=== PATIENT | female | born 1970 | race Caucasian/White ===

== ENCOUNTER 2020-12-26 13:59 | Outpatient (CLI) | payer OTHER, SELFPAY ==
--- NOTE | ~2020-12-26 | US_ITS ---
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 Factor 5 deficiency. TECHNIQUE: Multiple grayscale, color flow, Doppler sonographic images of the left upper extremity vei ns obtained by technologist. Compression was performed where able. There is no prior study for justice matos. FINDINGS: Left upper extremity: Jugular vein: ------------> Normal. Subclavian vein: --------> Normal. Axillary vein:------------> Normal. Brachial vein:-----------> Normal. Basilic vein: ------------> Normal. Cephalic vein: ----------> Normal. Radial vein: ------------> Normal. Ulnar vein: > Normal. IMPRESSION: No deep venous thrombosis of the left upper extremity. Reviewed, dictated and finalized at location A.
== END 2020-12-26 14:00 | disposition home or self-care (01) ==
PROVIDERS: PCP Internal Medicine; Visit Provider Nurse Practitioner
DX: M79.602 Pain in left arm (principal); R60.9 Edema, unspecified
CPT/HCPCS: 93971

== ENCOUNTER → 2021-03-21 17:21 | Outpatient (CLI) | payer OTHER, SELFPAY ==
--- NOTE | ~2021-03-21 | XR_ITS ---
EXAMINATION: XR shoulder LT min 2V DATE: 03/21/2021 17:43 INDICATION: Left shoulder pain. TECHNIQUE: 4 views of left shoulder were obtained. COMPARISON: None. FINDINGS: Bone alignment is normal. No fracture. Glenohumeral joint is normal. There is mild acromioc lavicular joint osteoarthritis. There are surgical clips in left axilla. 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 IMPRESSION: 1. Mild left acromioclavicular joint osteoarthritis. Reviewed, dictated and finalized at location A.
== END ==
PROVIDERS: PCP Internal Medicine; Visit Provider Nurse Practitioner
DX: M19.012 Primary osteoarthritis, left shoulder (principal)
CPT/HCPCS: 73030

== ENCOUNTER 2021-03-30 08:11 | Outpatient (CLI) | payer OTHER, SELFPAY ==
--- NOTE | ~2021-03-30 | CT_ITS ---
EXAMINATION: CT shoulder LT wo con DATE: 03/30/2021 08:38 INDICATION: Left shoulder pain TECHNIQUE: High resolution computed tomography (CT) of the left shoulder was performed without intrav enous contrast. Additional sagittal and coronal reconstructions were performed. Automated exposure co ntrol and iterative reconstruction technique were employed. The dose-length product was 323.67 mGy-cm . COMPARISON: Left shoulder radiographs dated 03/21/2021 FINDINGS: Alignment is normal. No fracture. Left glenohumeral joint space is normal. Minimal left acromioclavic ular osteoarthritis. No glenohumeral joint effusion. Musculature of the left shoulder girdle appears normal. Partially visualized tissue ambulette driver the left breast and multiple surgical clips the left axi lla consistent with prior axillary lymph node dissection. No pathologically enlarged lymphadenopathy at the left axilla or visualized left neck and chest. IMPRESSION: 1. Minimal left acromioclavicular osteoarthritis. Reviewed, dictated and finalized at location A.
== END 2021-03-30 08:12 | disposition home or self-care (01) ==
PROVIDERS: PCP Internal Medicine; Visit Provider Nurse Practitioner
DX: M25.512 Pain in left shoulder (principal); M19.012 Primary osteoarthritis, left shoulder
CPT/HCPCS: 73200

== ENCOUNTER 2021-06-11 13:15 | Outpatient (RCR) | payer OTHER, SELFPAY ==
--- NOTE | 2021-04-26 12:04 | PTOPEVAL ---
PHYSICAL THERAPY EVALUATION Thank you for referring Darya Martinez to [facility].? Darya was evaluated for the dx of left shoulder pain/adhesive capsulitis. The patient is scheduled to be seen for therapy? 2 x/week for 4 weeks. Please review, sign, date and return this plan of care PRATIMA. I agree with and certify that the following plan of care is medically necessary. Referring Physician Date Attending Provider: Edita Albert NP *PT Outpatient Evaluation Start: 04/26/21 10:29 Freq: Status: Active Protocol: Document 04/26/21 10:29 MLV (Rec: 04/26/21 11:31 [facility] [id number]) Therapy Assessment Status Assessment Status Assessment Status Evaluation Evaluation Information Problem Diagnosis left shoulder pain Onset Oct 2020 Additional Evaluation Detail The patient fell in her bathroom hard and landed on the left arm. The whole arm hurt for 2 weeks then got better with pain worse at the shoulder area. The patient also found out she had breast cancer at the same time frame. The patient required double mastectomy in January 2021 and the shoulder was still hurting but had to fix CA issues first. The patient has left deltoid pain with raising her arm, driving and reaching across her body. The patient has trouble putting her bra on/off, and increased pain with sidelying which all affects her sleep. The pt works multimedia production assistant computer work remotely and worked out up to about a year ago. Subjective Information Note: the patient will need Query Text:As Reported By Patient/ surgery in May for Family breast surgery. Pt is right hand dominant Diagnostic Tests X-Rays For This Problem Yes: mild OA Other Tests For This Problem Yes: CT scan shows only mild OA also. Pain Assessment Timing of Pain Assessment Timing of Pain Assessment Assessment Pain Scale Pain Scale Used Numeric (1 - 10) Self Report Pain Assessment Left Shoulder(s) Reported Pain Level 1 Pain Frequency Acute Other Pain Description 6 with reaching full, 7 with
--- NOTE | 2021-05-28 15:23 | PTOPEVAL ---
PHYSICAL THERAPY RE-EVALUATION Thank you for referring Darya Martinez to [facility].? Darya was re-evaluated for the dx of left frozen shoulder and PT to continue with goals partially met. The patient is scheduled to be seen for therapy?2 x/week for 2 more weeks. Please review, sign, date and return this plan of care PRATIMA. I agree with and certify that the following plan of care is medically necessary. Referring Physician Date Attending Provider: Edita Albert NP *PT Outpatient Evaluation Start: 04/26/21 10:29 Freq: Status: Active Protocol: Document 05/28/21 12:34 MLV (Rec: 05/28/21 13:22 MLV [id number]) Evaluation Information Problem Diagnosis left shoulder pain/frozen shoulder Onset Oct 2020 Additional Evaluation Detail The patient reports improved ability to reach and has less pain with most movements. Patient is more tolerant to laying on her right side now than before. The patient has pulleys for home exercises, is compliant and denies trouble with current HEP. The patient agrees she needs further motion to return to normal use of arm and to prevent recurring symptoms when having breast surgery soon. Pain Assessment Timing of Pain Assessment Timing of Pain Assessment Assessment Pain Scale Pain Scale Used Numeric (1 - 10) Self Report Pain Assessment Left Shoulder(s) Reported Pain Level 1 Other Pain Description 3 with activity/movement of arm Pain Score Pain Score 1: Self Report Interventions Used Interventions Used By Clinicians Electrical Stimulation,Heat, Manual Therapy Techniques Pain Relief Interventions Used By Exercise,Position Change Patient Upper Extremity Range of Motion General Upper Extremity Range of Motion Gross Upper Extremity Range of Motion active right shoulder flexion Comments 153' with pain, abduction 174' with pain, extension 69', ER 61', 80' with pain for IR active left shoulder flexion 145', abduction 160', extension 63', ER 47', 80' IR (improved) Upper Extremity Muscle Strength Testing General Upper Extremity Strength Reason Not Measured WFL/Left,WFL/Right Palpation Assessment
--- NOTE | 2021-05-31 11:48 | PCPTNOTE ---
Patient did not show up for scheduled appointment this date.
--- NOTE | 2021-06-08 09:26 | PCPTNOTE ---
Patient called & cancelled scheduled appointment this date due to having a sore throat and not feeling well.
--- NOTE | 2021-06-11 14:09 | PTOPEVAL ---
PHYSICAL THERAPY DISCHARGE Thank you for referring Darya Martinez to [facility].? The patient has completed 10 visits for the dx of left shoulder pain/adhesive capsulitis. Goals are met/ DC PT. Please review, sign, date and return this plan of care PRATIMA. I agree with and certify the following plan of carE. Referring Physician Date Attending Provider: Edita Albert NP *PT Outpatient Discharge Start: 04/26/21 10:29 Freq: Status: Active Protocol: Document 06/11/21 13:14 MLV (Rec: 06/11/21 14:03 MLV [id number]) Evaluation Information Problem Diagnosis left shoulder pain/frozen shoulder Onset Oct 2020 Additional Evaluation Detail The patient reports her arm doesn't keep her up at night and doesn't have pain unless she overuses it. Patient reports having difficulty with compliance for her stretching now that her arm feels better but understands the importance of doing better to prevent a frozen shoulder after her upcoming breast surgery. Pt denies difficulty with HEP techniques, just forgets to do it sometimes. Pain Assessment Timing of Pain Assessment Timing of Pain Assessment Assessment Pain Scale Pain Scale Used Numeric (1 - 10) Self Report Pain Assessment Left Shoulder(s) Reported Pain Level 0 Other Pain Description 4 with overuse Pain Score Pain Score 0: Self Report Interventions Used Interventions Used By Clinicians Education,Exercise,Manual Therapy Techniques Pain Relief Interventions Used By Exercise,Inactivity/Rest Patient Upper Extremity Range of Motion General Upper Extremity Range of Motion Gross Upper Extremity Range of Motion active right shoulder flexion Comments 153' with pain, abduction 174' with pain, extension 69', ER 61', 80' with pain for IR active left shoulder flexion 149', abduction 166', extension 63', ER 50', 80' IR Palpation Assessment Palpation Palpation remaining tightness at neck/ shoulder are of chronic nature. Pt has hx of tightnesses that she goes to a massage therapist for.
== END 2021-06-11 17:38 | disposition home or self-care (01) ==
LOC: ANHPT 13:15
PROVIDERS: PCP Internal Medicine; Visit Provider Nurse Practitioner
DX: M25.512 Pain in left shoulder (principal)
CPT/HCPCS: 97014; 97110; 97140; 97162; G0283

== ENCOUNTER → 2021-10-12 00:43 | Outpatient (CLI) | payer OTHER, SELFPAY ==
[2021-10-13 18:19] LABS: SARS-CoV-2 RNA PCR Negative
== END ==
PROVIDERS: PCP Internal Medicine; Visit Provider Internal Medicine Gastroenterology
DX: Z01.812 Encounter for preprocedural laboratory examination (principal); Z20.822 Contact with and (suspected) exposure to COVID-19
CPT/HCPCS: C9803; U0003; U0005

== ENCOUNTER 2021-10-15 00:17 | Day surgery (SDC) | payer OTHER, SELFPAY ==
[2021-10-01 10:48] VITALS: BMI 28.4
[2021-10-15 06:45] VITALS: BP 114/87; PULSE 108; RESP 18; TEMP 36.9; O2SAT 98
[2021-10-15] MEDS: LACTATED RINGERS 1,000 ML 150 ML IV CONT (06:48)
--- NOTE | 2021-10-15 06:57 | WPDANESEPPF ---
Anes - Initial Pre Proc Eval Procedure: Operation Date: 10/15/21 07:30 Proposed Procedures p Screening Colonoscopy - Fox Weber MD Date/Time: 10/15/21 06:57 Surgeon: Fox Weber MD Pre Op Diagnosis: neoplasm screening Patient Data Age: 51 Gender: F Height: 1.6 m Weight: 69.8 kg Last Vital Signs Temp 36.9 C 10/15/21 06:45 Pulse 108 H 10/15/21 06:45 Resp 18 10/15/21 06:45 BP 114/87 10/15/21 06:45 Pulse Ox 98 10/15/21 06:45 Allergies Allergy/AdvReac Type Severity Reaction Status Date / Time No Known Allergies Allergy Verified 10/15/21 06:43 Home Medications Medication Instructions Recorded Confirmed Type aspirin 81 mg tablet,delayed 81 mg PO DAILY 09/16/19 10/01/21 History release escitalopram oxalate 5 mg tablet 5 mg PO DAILY 06/07/20 10/01/21 History anastrozole 1 mg tablet 1 mg PO DAILY 04/26/21 10/01/21 History leuprolide (3 month) 22.5 mg (3 22.5 mg IM [id number] 04/26/21 10/01/21 History month) intramuscular syringe kit valacyclovir 500 mg tablet 500 mg PO DAILY #90 tablet 07/12/21 10/01/21 Rx fluticasone propionate 50 2 spray NASAL DAILY PRN #15.8 ml 08/17/21 10/01/21 Rx mcg/actuation nasal spray,suspension trazodone 100 mg tablet 100 mg PO QHS PRN #30 tablet 09/14/21 10/01/21 Rx cholecalciferol (vitamin D3) 50 mcg PO DAILY 10/01/21 10/01/21 History [Vitamin D3] Patient hx anesthesia problems: none Family hx anesthesia problems: none Results Review: All pre-operative results and documents have been reviewed as part of the pre-operative evaluation. 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 H/O mastectomy History of bilateral tubal ligation 2002 Family History Family History Grandparent Diabetes mellitus Thrombocyte disorder Mother Patient's mother is in good health Thrombocyte disorder Father Dementia Family history of cancer Social History Social History Smoking status: Never smoker Second hand tobacco smoke exposure: No Alcohol intake: current Alcohol use details: social Substance use: unknown Substance use type: does not use Living arrangements: with family Spiritual care concerns: No Anes - Eval Final PreProcedure Day of Procedure 10/15/21 06:57 Patient weight: overweight Heart: regular rate and rhythm Lungs: clear to auscultation Airway: Mallampati scale class II Neurological: alert and oriented Last oral intake: >/= 8 hours ASA classification: III Emergent: no Anesthetic plan: proceed Anesthesia type and monitoring: general GIVS and standard monitoring Results Review: All pre-operative results and documents have been reviewed as part of the pre-operative evaluation. Informed Consent: The patient's anesthetic plan and its attendant risks and benefits were discussed with the patient/family/POA. Questions were solicited and answers provided to the satisfaction of the patient/family/POA.
--- NOTE | 2021-10-15 07:34 | PM.HPGS ---
History of Present Illness History of Present Illness Consent: Risks, benefits, and alternatives have been discussed and questions answered. Patient agrees to proceed with procedure. Chief complaint: neoplasm screening Narrative: Darya Martinez is a 51 year old female here for first screening colonoscopy Review of Systems Constitutional: Constitutional: Denies headache(s) and Denies weakness Eyes: Eyes: Denies blurry vision ENT: Reports Normal hearing present, Denies headache(s) and Denies neck pain Cardiovascular: Cardiovascular: Denies chest pain and Denies dyspnea Respiratory: Respiratory: Denies dyspnea Gastrointestinal: Gastrointestinal: Reports no additional gastrointestinal complaints Genitourinary: Genitourinary: Denies dysuria Musculoskeletal: Musculoskeletal: Denies neck pain Integumentary/Breasts: Skin/Breast: Denies dry skin Neurologic: Reports Normal hearing present, Denies headache(s) and Denies weakness Psychiatric: Psychiatric: Denies anxiety Endocrine: Endocrine: Denies change in body appearance Hematologic/Lymphatic: Hematologic/Lymphatic: Denies easy bleeding Allergic/Immunologic: Allergic/Immunologic: Denies urticaria PMF Past Medical History Medical History (Updated 10/15/21 @ 07:34 by Fox Weber MD) Abnormal uterine bleeding Removal of uterine cells 2018 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 H/O mastectomy History of bilateral tubal ligation 2002 Family History Family History Grandparent Diabetes mellitus Thrombocyte disorder Mother Patient's mother is in good health Thrombocyte disorder Father Dementia Family history of cancer Social History Social History Smoking status: Never smoker Second hand tobacco smoke exposure: No Alcohol intake: current Alcohol use details: social Substance use: unknown Substance use type: does not use Living arrangements: with family Spiritual care concerns: No Meds Home Medications and Allergies Home Medications Medication Instructions Recorded Confirmed Type aspirin 81 mg tablet,delayed 81 mg PO DAILY 09/16/19 10/01/21 History release escitalopram oxalate 5 mg tablet 5 mg PO DAILY 06/07/20 10/01/21 History anastrozole 1 mg tablet 1 mg PO DAILY 04/26/21 10/01/21 History leuprolide (3 month) 22.5 mg (3 22.5 mg IM [id number] 04/26/21 10/01/21 History month) intramuscular syringe kit valacyclovir 500 mg tablet 500 mg PO DAILY #90 tablet 07/12/21 10/01/21 Rx fluticasone propionate 50 2 spray NASAL DAILY PRN #15.8 ml 08/17/21 10/01/21 Rx mcg/actuation nasal spray,suspension trazodone 100 mg tablet 100 mg PO QHS PRN #30 tablet 09/14/21 10/01/21 Rx cholecalciferol (vitamin D3) 50 mcg PO DAILY 10/01/21 10/01/21 History [Vitamin D3] Allergies Allergy/AdvReac Type Severity Reaction Status Date / Time No Known Allergies Allergy Verified 10/15/21 06:43 Vital Signs Vital Signs - 24 hr 10/15/21 06:45 Temperature 98.4 F Pulse Rate 108 H Respiratory Rate 18 Blood Pressure 114/87 Pulse Oximetry 98 Exam Const: General: comfortable and no acute distress HENMT: General nose exam: Normal nares present Eyes: General: appearance normal, both eyes and all related structures Neck: Neck: no JVD Resp: Auscultation: clear to auscultation bilaterally Cardio: Rate: regular rate Rhyth
[2021-10-15 07:52] VITALS: BP 88/56; PULSE 82; RESP 18; O2SAT 94
[2021-10-15 08:02] VITALS: BP 98/65; PULSE 83; RESP 18; O2SAT 100
[2021-10-15 08:12] VITALS: BP 90/64; PULSE 83; RESP 17; O2SAT 100
== END 2021-10-15 08:26 | disposition home or self-care (01) ==
PROVIDERS: PCP Internal Medicine; Visit Provider Internal Medicine Gastroenterology
PROC: 0DJD8ZZ Inspection of Lower Intestinal Tract, Via Natural or Artificial Opening Endoscopic (ICD-10-PCS; CPT 45378; principal; 2021-10-15 07:30)
DX: Z12.11 Encounter for screening for malignant neoplasm of colon (principal); D12.3 Benign neoplasm of transverse colon; K57.30 Diverticulosis of large intestine without perforation or abscess without bleeding; K64.8 Other hemorrhoids; F32.9 Major depressive disorder, single episode, unspecified; D68.51 Activated protein C resistance; E78.5 Hyperlipidemia, unspecified; D72.819 Decreased white blood cell count, unspecified; E55.9 Vitamin D deficiency, unspecified; Z79.82 Long term (current) use of aspirin
CPT/HCPCS: 45380; 88305; C9803; J2001; J2704; J7120; U0003; U0005

== ENCOUNTER 2022-07-10 11:44 | Emergency (ER) | payer OTHER, SELFPAY ==
[2022-07-10 11:57] VITALS: BP 116/69; PULSE 93; RESP 18; TEMP 36.5; O2SAT 97
--- NOTE | 2022-07-10 12:59 | ED.URI ---
HPI - URI/Sore Throat General Chief Complaint: Upper Respiratory Infection Stated Complaint: Sore Throat,Congestion,Cough Source: patient Mode of arrival: ambulatory History of Present Illness HPI Narrative: This is a 52-year-old female who presented to urgent care with complaints of a sore throat, congestion, and a nonproductive cough. According to patient her symptoms started a week ago she also noted that her grandson tested positive for COVID in RSVP. She notes that she tested herself 2 times for COVID which was negative. She did note that her appetite was also decreased, she used sagt-dua-zipsgrt DayQuil and NyQuil to treat her symptoms . The patient denies SOB, CP, palpitation, extremity numbness, lightheadedness, dizziness, constipation, diarrhea, chills, or fever. Discharge instructions reviewed with patient, as well as provided in writing per nursing staff. The instructions also include specific and strict return/GO TO THE ER as well as f/u information. All questions have been answered, and the patient and/or family deny any further questions with discharge and discharge plan. Bronchitis MD elicited complaint: cough and nasal congestion Related Data Home Medications Medication Instructions Recorded Confirmed aspirin 81 mg tablet,delayed 81 mg PO DAILY 09/16/19 07/10/22 release escitalopram oxalate 5 mg tablet 10 mg PO DAILY 06/07/20 07/10/22 (Lexapro) anastrozole 1 mg tablet 1 mg PO DAILY 04/26/21 07/10/22 leuprolide (3 month) 22.5 mg (3 22.5 mg IM [id number] 04/26/21 07/10/22 month) intramuscular syringe kit (Lupron Depot) cholecalciferol (vitamin D3) 50 50 mcg PO DAILY 10/01/21 07/10/22 mcg (2,000 unit) capsule (Vitamin D3) rivaroxaban 20 mg tablet (Xarelto) 20 mg PO DAILY 07/10/22 07/10/22 Allergies Allergy/AdvReac Type Severity Reaction Status Date / Time No Known Allergies Allergy Verified 07/10/22 12:14 Review of Systems Review of Systems: A 14 organ system Review of Systems was performed and pertinent positives included in the HPI, otherwise remaining ROS is negative. [facility] Past Medical History Medical History (Updated 07/10/22 @ 12:58 by Sonda R. 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 H/O mastectomy History of bilateral tubal ligation 2002 Family History Family History Grandparent Diabetes mellitus Thrombocyte disorder Mother Patient's mother is in good health Thrombocyte disorder Father Dementia Family history of cancer Social History Social History Smoking status: Never smoker Second hand tobacco smoke exposure: No Alcohol intake: current Alcohol use details: social Substance use: unknown Substance use type: does not use Spiritual care concerns: No Exam Narrative: GENERAL: This is a well-nourished, well-developed patient, in no apparent distress. HEAD: normocephalic, atraumatic. EYES: PERRL. Sclera clear/white. Vision is grossly intact. EARS: External ears normal, auditory canals clear and without drainage, TMs normal without perforation. Hearing grossly intact. NOSE: External nose normal with no obvious nasal discharge, nares without redness, no rhinorrhea. THROAT: Mucous membranes moist, posterior pharynx clear. NECK: Neck supple, non-tender without lymphadenopathy, masses or thyromegaly. CARDIOVA
== END 2022-07-10 13:00 | disposition home or self-care (01) ==
PROVIDERS: Emergency Provider Nurse Practitioner; PCP Internal Medicine
DX: J00 Acute nasopharyngitis [common cold] (principal); E78.5 Hyperlipidemia, unspecified; Z85.3 Personal history of malignant neoplasm of breast; Z90.12 Acquired absence of left breast and nipple; Z20.822 Contact with and (suspected) exposure to COVID-19; Z79.82 Long term (current) use of aspirin; F32.A Depression, unspecified
CPT/HCPCS: 87426; 99213; C9803; G0463

== ENCOUNTER → 2023-01-16 11:13 | Outpatient (CLI) | payer OTHER, SELFPAY ==
--- NOTE | ~2023-01-16 | US_ITS ---
Pelvic ultrasound. Clinical History: Pelvic pain Technique: Realtime transabdominal and transvaginal scanning of the pelvis was performed. Color flow Doppler and Doppler spectral analysis were performed. Findings: The uterus is anteverted. The endometrial stripe has a thickness of 6 mm. Suspected ill-de fined anterior intramural fibroid measuring 1.8 cm in diameter.. Neither ovary seen. No adnexal mass seen. There is no evidence of free fluid in the cul de sac. Impression: Suspected ill-defined 1.8 cm fibroid, as above. Neither ovary visualized. Reviewed, dictated and finalized at location . Impression: Suspected ill-defined 1.8 cm fibroid, as above. Neither ovary visualized.
== END ==
PROVIDERS: PCP Obstetrics & Gynecology; Visit Provider Obstetrics & Gynecology
DX: R10.2 Pelvic and perineal pain (principal)
CPT/HCPCS: 76830; 76856

== ENCOUNTER → 2023-03-07 10:17 | Outpatient (CLI) | payer OTHER, SELFPAY ==
--- NOTE | ~2023-03-07 | CT_ITS ---
EXAMINATION: CT abdomen pelvis wo/w con DATE: 03/07/2023 11:01 INDICATION: Microscopic hematuria. Pelvic pain. TECHNIQUE: Computed tomography (CT) of the abdomen and pelvis was performed without and subsequently with 130 CC Omnipaque 350 intravenous contrast. Automated exposure control and iterative reconstructi on technique were employed. Exam dose: 1384.48 mGy-cm total exam DLP. COMPARISON: January 16, 2023 pelvic ultrasound examination FINDINGS: The lung bases are clear of infiltrate or consolidation. Normal heart size. No pericardial or pleural effusion. Bilateral breast implants. History of breast cancer. Approximately 7.5 mm nonspecific hypoenhancing lesion of the liver noted anterosuperiorly near the do me. Differential diagnosis includes cyst, hemangioma, solitary metastasis. No prior CT abdomen examin ation is available for comparison. The liver is otherwise unremarkable. The gallbladder appears normal. No bile duct or pancreatic duct dilatation. No pancreatic mass lesion or calcification. Splenic size is within normal range. Normal morphology of the adrenal glands. 8.5 mm right renal cyst. There are 4 nonobstructing right renal calculi, the largest approximately 4.4 mm. There are approximately 4 or 5 left renal calculi, the largest measuring up to approximately 9.5 mm w ith attenuation of 1200 Hounsfield units. There is an approximately 4.4 x 6.4 x 10 mm calculus of the distal right ureter with proximal mild ri ght hydroureteronephrosis. The urinary bladder is unremarkable. No bladder wall thickening or intraluminal filling defect or brien dder calculus is noted. The uterus and adnexal areas are unremarkable. Normal caliber of the abdominal aorta. No intraperitoneal or retroperitoneal or pelvic mass lesion or adenopathy or ascites is detected. There is diverticulosis of left and right colon; no CT evidence of diverticulitis. No bowel obstructi on, bowel wall thickening, pneumatosis or intraperitoneal free air is detected. IMPRESSION: 4.4 x 6.4 x 10 mm distal right ureteral obstructing calculus with proximal mild right hy droureteronephrosis Bilateral nephrolithiasis 8.5 mm right renal cyst Diverticulosis of left and right colon; no evidence of diverticulitis Nonspecific 7.5 mm hypoenhancing lesion of the liver; differential diagnosis given above Reviewed, dictated and finalized at Location A. Reviewed, dictated and finalized at location [] IMPRESSION: 4.4 x 6.4 x 10 mm distal right ureteral obstructing calculus with proximal mild right hydroureteronephrosis Bilateral nephrolithiasis 8.5 mm right renal cyst Diverticulosis of left and right colon; no evidence of diverticulitis Nonspecific 7.5 mm hypoenhancing lesion of the liver; differential diagnosis gi lorne above
--- NOTE | ~2023-03-07 | XR_ITS ---
XR abdomen/kub 1V DATE: 03/07/2023 11:08 INDICATION: Microscopic hematuria TECHNIQUE: 2 supine AP views COMPARISON: 03/17/2023 CT abdomen pelvis FINDINGS: There is mild right hydroureteronephrosis. The distal right ureter is normal caliber. No filling defect of the renal collecting systems is noted. The urinary bladder appears unremarkable. The bowel gas pattern is unremarkable, without evidence of obstruction. The lung bases appear clear. IMPRESSION: Mild right hydroureteronephrosis; distal right ureteral calculus was documented on CT abdomen pelvis. Reviewed, dictated and finalized at Location A. Reviewed, dictated and finalized at location [] IMPRESSION: Mild right hydroureteronephrosis; distal right ureteral calculus wa s documented on 02/2023 CT abdomen pelvis.
[2023-03-07 10:41] LABS: Estimated Glomerular Filt Rate > 60
== END ==
PROVIDERS: PCP Internal Medicine; Visit Provider Urology
DX: R31.29 Other microscopic hematuria (principal); N13.30 Unspecified hydronephrosis; N20.1 Calculus of ureter; N28.1 Cyst of kidney, acquired; K57.30 Diverticulosis of large intestine without perforation or abscess without bleeding
CPT/HCPCS: 74018; 74178; Q9967

== ENCOUNTER 2023-03-13 11:27 | Outpatient (CLI) | payer OTHER, SELFPAY | END 2023-03-13 11:28 | disposition home or self-care (01) | LOC: ANHSURGERY 11:28 | PROVIDERS: PCP Internal Medicine; Visit Provider Urology | DX: N20.1 Calculus of ureter (principal); Z01.818 Encounter for other preprocedural examination | CPT/HCPCS: 87086 ==

== ENCOUNTER 2023-03-18 00:46 | Day surgery (SDC) | payer OTHER, SELFPAY ==
[2023-03-10 15:21] VITALS: BMI 27.7
--- NOTE | 2023-03-10 15:43 | PC.NURSE ---
Report to the Outpatient Waiting Room, entrance under the green pavilion located off [facility], at time __6:00AM on date __03/18/23 . Planned Procedure Time: _7:30AM . Time changes happen often and if your time is changed the preop area will call you the afternoon before. - You and your visitor will be asked to self-screen and do not enter if you have any COVID symptoms. - A mask is optional within the hospital at this time. Patients may have clear liquids (water, carbonated beverages, clear teas, apple juice) until 3 hours prior to surgery with a maximum of 20 ounces. - No food from midnight until time of surgery Take the following medications with a SIP of water the morning of surgery: ___ESCITALOPRAM DO NOT STOP ANY OF YOUR OTHER PRESCRIPTION MEDICATIONS PRIOR TO SURGERY ?EXCEPT THE FOLLOWING Medications to discontinue per physician __HOLD XERALTO PER DR ROBLES- PATIENT CALLING OFFICE TO CLARIFY. HOLD ALL VITAMINS/SUPPLEMENTS 3 DAYS PRE-OP PER ANESTHESIA- LAST DOSE 03/14/23 Please no make-up, nail sinhala, hairspray, perfume, deodorant, or body powder the day of surgery. No jewelry (including any body piercings) or valuables the day of surgery, leave them at home. Please take a shower or bath the night before, or the morning of, surgery with an antibacterial soap. Wear comfortable, loose fitting clothing. Children are encouraged to wear pajamas. - Jewelry must be removed prior to entering the operating room. Rings and piercings that are not removed may be cut off. - The hospital will not accept responsibility for valuables. - Please leave all valuables, including medications, at home the day of surgery. If you are going home after surgery, a licensed livery car driver must drive you home. - NO public transportation without another adult if you receive anesthesia. - We recommend that an adult stay with you for 24 hours following discharge. - We also recommend that you do not drive, make important decision, drink alcoholic beverages, or take any drugs that were not prescribed by your health care provider for at least 24 hours after your discharge time. Follow any additional instructions given to you from your surgeon. If you or anyone in your household have experienced Covid symptoms in the past week, please notify your surgeon or the nurse liaison at the phone number below for possible testing. Telephone instructions given to __PATIENT and asked if any additional questions and then verbalized understanding. Patient advised to call surgeon office or pre surgery nurse liaison [phone] if any additional questions.
--- NOTE | 2023-03-17 12:58 | WPDANESEPPF ---
Anes - Initial Pre Proc Eval Procedure: Operation Date: 03/18/23 07:30 Proposed Procedures p Cystoscopy, Right Ureteroscopy, Right Stone Extraction, Right Retrograde Pyelogram, Right Stent Placement, Right Laser Lithotripsy - Prabhjot Mitchell MD Date/Time: 03/17/23 12:58 Surgeon: Prabhjot Mitchell MD Pre Op Diagnosis: right ureteral stone Patient Data Age: 52 Gender: F Height: 1.6 m Weight: 71 kg Allergies Allergy/AdvReac Type Severity Reaction Status Date / Time No Known Allergies Allergy Verified 03/18/23 06:50 Home Medications Medication Instructions Recorded Confirmed Type escitalopram oxalate 5 mg tablet 10 mg PO QAM 06/07/20 03/10/23 History (Lexapro) cholecalciferol (vitamin D3) 50 50 mcg PO DAILY 10/01/21 03/10/23 History mcg (2,000 unit) capsule (Vitamin D3) fluticasone propionate 50 1 spray intranasal Q12H 5 days #16 07/10/22 03/10/23 Rx mcg/actuation nasal grams spray,suspension (Flonase Allergy Relief) rivaroxaban 20 mg tablet (Xarelto) 20 mg PO QPM 07/10/22 03/10/23 History tamoxifen 10 mg tablet 10 mg PO QAM 07/25/22 03/10/23 History valacyclovir 500 mg tablet 500 mg PO DAILY #90 tabs 07/25/22 03/10/23 Rx Patient hx anesthesia problems: none Family hx anesthesia problems: none Results Review: All pre-operative results and documents have been reviewed as part of the pre-operative evaluation. [facility] Past Medical History Medical History (Updated 03/17/23 @ 12:59 by Fermin Alaniz DO) Abnormal uterine bleeding Removal of uterine cells 2018 Atypical lobular hyperplasia (ALH) of both breasts Breast cancer Diagnosed age 50 (11/2020) Colon cancer screening Depression DVT (deep venous thrombosis) Encounter for breast reconstruction following mastectomy 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 H/O mastectomy History of bilateral tubal ligation 2002 Family History Family History Grandparent Diabetes mellitus Thrombocyte disorder Mother Patient's mother is in good health Thrombocyte disorder Father Dementia Family history of cancer Social History Social History (Updated 01/24/23 @ 07:40 by Dimple Ferrell MA) Smoking status: Never smoker Second hand tobacco smoke exposure: No Alcohol intake: current Drinks per week: 2 Alcohol use details: social Substance use: never Substance use type: does not use Lack of Transportation: No Lack of Food: Never True Current Housing: I Have Housing Concerned About Future Housing: No Difficulty Paying Gas/Electric Bills: No Difficulty Paying for Meds: No Currently Unemployed: No Education: High School Diploma/GED Living arrangements: with family Additional living arrangements comments: DAUGHTER Occupation/Education: occupation Gender identity (if verbalized by the patient): Female Sexual Orientation (if Verbalized by the Patient): Straight or Heterosexual Spiritual care concerns: No Anes - Eval Final PreProcedure Day of Procedure 03/17/23 12:58 Patient weight: overweight Heart: regular rate and rhythm Lungs: clear to auscultation Airway: Mallampati scale class II Neurological: alert and oriented Last oral intake: >/= 8 hours ASA classification: III Emergent: no Anesthetic plan: proceed Anesthesia type and monitoring: general LMA and standard monitoring Results Review: All pre-operative results and documents have been reviewed as part of the pre-operative evaluation. Informed Consent: The patient's anesthetic plan and its attendant risks and benefits were discussed with the patient/family/PO
[2023-03-18] VITALS (8 sets, daily range): BP systolic 115–134; BP diastolic 70–88; PULSE 71–83; RESP 12–20; TEMP 36.4–36.6; O2SAT 99–100
--- NOTE | ~2023-03-18 | XR_ITS ---
EXAMINATION: XR retrograde pyelo w/stent RT DATE: 03/18/2023 08:10 INDICATION: Right internal ureteral stent placement TECHNIQUE: Fluoroscopic images from a right internal ureteral stent placement are submitted for dahiana schultz 15 seconds of fluoroscopy time. FINDINGS: There is a right double-J internal ureteral stent projecting in expected position, with proximal [address] loop at the level of the renal pelvis. The distal coil was not visualized.. IMPRESSION: 1. Right internal ureteral stent placement. Please refer to real-time procedural findings for detai ls. Reviewed, dictated and finalized at location L. IMPRESSION: 1. Right internal ureteral stent placement. Please refer to real-time procedu ral findings for details.
[2023-03-18] MEDS: LACTATED RINGERS 1,000 ML 30 ML IV CONT (06:57)
--- NOTE | 2023-03-18 07:23 | WPDHPUPDATE1 ---
History and Physical Update Update Date/Time: 03/18/23 07:23 History and Physical has been reviewed, including an updated exam of the patient. There are NO changes in the patient's condition. Risks, benefits, and alternatives have been discussed and questions answered. Patient agrees to proceed with procedure.
[2023-03-18] MEDS: ceFAZolin 2 GM/D5W 50 ML 2 GM/50 ML BAG IVPB (07:34)
[2023-03-18] MEDS: LIDOCAINE HCL 2% GEL UROJET 10 ML PKG MUCOUS MEM (08:06)
--- NOTE | 2023-03-18 08:08 | W.PM.PROC2 ---
Procedure Note - Detailed Date of Procedure 03/18/23 Pre-op Diagnosis right ureteral stone-1 cm Post-op Diagnosis Same Procedure Performed Cystoscopy, right retrograde pyelogram, right ureteroscopy, holmium laser of stone, stone extraction, right ureteral stent placement 4.8 Djib[place]ian contour Surgeon Prabhjot Mitchell MD Anesthesia General Description of Procedure Patient is taken the operative suite correctly identified. Once anesthesia was obtained she was placed in dorsal lithotomy position and prepped and draped usual sterile fashion. Twenty-two Djiboutian scope was inserted the bladder. There were no tumors noted. Guidewire was inserted into the orifice on the right. This bypassed the stone. The ureter was dilated with an 8/10 dilator. Rigid ureteral scope was then inserted. The stone was visualized. Using a 200 micron fiber we lasered the stone into multiple small pieces. Largest of which were sent for analysis. Reinspection revealed no residual stones. Pyelogram was then performed to confirm placement of the stent. 4.8 Djiboutian contour stent was then placed with the proximal end coiled in the renal pelvis and the distal in the bladder. Bladder was drained. 2% viscous lidocaine was inserted urethra patient is taken recovery stable condition. She will follow-up in a week's time for stent removal. This completes sedation on this patient. Please send a copy of this operative note to my office Drains Yes Packing No Pathology Yes Complications No immediate complications Condition Stable Disposition PACU
== END 2023-03-18 09:48 | disposition home or self-care (01) ==
PROVIDERS: PCP Internal Medicine; Visit Provider Urology
PROC: (CPT 52352; principal; 2023-03-18 07:30)
DX: N20.1 Calculus of ureter (principal); E78.5 Hyperlipidemia, unspecified; D68.51 Activated protein C resistance; E55.9 Vitamin D deficiency, unspecified; F32.A Depression, unspecified; Z86.718 Personal history of other venous thrombosis and embolism; Z85.3 Personal history of malignant neoplasm of breast; Z79.01 Long term (current) use of anticoagulants; Z79.810 Long term (current) use of selective estrogen receptor modulators (SERMs)
CPT/HCPCS: 52356; 74420; 82365; 87086; 88300; A9270; C1758; C1769; C2617; J0690; J1100; J2250; J2405; J2704; J3010; J7120

== ENCOUNTER 2023-04-17 09:24 | Outpatient (CLI) | payer OTHER, SELFPAY ==
--- NOTE | ~2023-04-17 | XR_ITS ---
Supine and upright views of the abdomen Clinical history: Renal stone COMPARISON: 03/07/2023 Findings: Bowel gas pattern is nonspecific. No evidence for obstruction or free air. Bilateral renal stones are present, measuring up to 11 mm at the left lower pole, and 4 mm the right lower pole. Osse ous structures are intact. Impression: Bilateral nephrolithiasis, as detailed above. Reviewed, dictated and finalized at location . Impression: Bilateral nephrolithiasis, as detailed above.
== END 2023-04-17 09:25 | disposition home or self-care (01) ==
PROVIDERS: PCP Internal Medicine; Visit Provider Urology
DX: N20.0 Calculus of kidney (principal)
CPT/HCPCS: 74018

== ENCOUNTER 2023-05-02 04:13 | Day surgery (SDC) | payer OTHER, SELFPAY ==
[2023-04-29 10:10] VITALS: BMI 27.4
--- NOTE | 2023-04-29 10:19 | PC.NURSE ---
Report to the Outpatient Waiting Room, entrance under the green pavilion located off [facility], at time 0830 on date 05/02/23. Planned Procedure Time: 1030. Time changes happen often and if your time is changed the preop area will call you the afternoon before. - You and your visitor will be asked to self-screen and do not enter if you have any COVID symptoms. - A mask is optional within the hospital at this time. Patients may have clear liquids (water, carbonated beverages, clear teas, apple juice) until 3 hours prior to surgery with a maximum of 20 ounces. - No food from midnight until time of surgery Take the following medications with a SIP of water the morning of surgery: ESCITALOPRAM, VALACYCLOVIR DO NOT STOP ANY OF YOUR OTHER PRESCRIPTION MEDICATIONS PRIOR TO SURGERY ?EXCEPT THE FOLLOWING Medications to discontinue per physician: VITAMINS Date to take last dose: 04/28/23 PT STATES WAS INSTRUCTED TO HOLD XARELTO FOR 2 DAYS PRIOR TO SURGERY. Please no make-up, nail armenian, hairspray, perfume, deodorant, or body powder the day of surgery. No jewelry (including any body piercings) or valuables the day of surgery, leave them at home. Please take a shower or bath the night before, or the morning of, surgery with an antibacterial soap. Wear comfortable, loose fitting clothing. - Jewelry must be removed prior to entering the operating room. Rings and piercings that are not removed may be cut off. - The hospital will not accept responsibility for valuables. - Please leave all valuables, including medications, at home the day of surgery. If you are going home after surgery, a licensed regional truck driver must drive you home. - NO public transportation without another adult if you receive anesthesia. - We recommend that an adult stay with you for 24 hours following discharge. - We also recommend that you do not drive, make important decision, drink alcoholic beverages, or take any drugs that were not prescribed by your health care provider for at least 24 hours after your discharge time. Follow any additional instructions given to you from your surgeon. If you or anyone in your household have experienced Covid symptoms in the past week, please notify your surgeon or the nurse liaison at the phone number below for possible testing. Telephone instructions given to PT - BILLY CHRISTINA and asked if any additional questions and then verbalized understanding. Patient advised to call surgeon office or pre surgery nurse liaison [phone] if any additional questions.
[2023-05-02] VITALS (7 sets, daily range): BP systolic 98–139; BP diastolic 69–90; PULSE 72–93; RESP 12–18; TEMP 36.2–36.6; O2SAT 97–100
--- NOTE | ~2023-05-02 | XR_ITS ---
EXAMINATION: XR abdomen/kub 1V DATE: 05/02/2023 07:45 INDICATION: Left kidney stone. TECHNIQUE: A supine view of the abdomen on 2 radiographs was obtained. COMPARISON: Abdomen radiograph 04/17/2023, CT abdomen and pelvis 03/07/2023 FINDINGS: There are no dilated loops of bowel. There are 2 mm and 4 mm stones in right kidney. There are approximately 3 stones in left kidney measuring up to 8 mm. IMPRESSION: 1. Bilateral kidney stones. Reviewed, dictated and finalized at location B. IMPRESSION: 1. Bilateral kidney stones.
--- NOTE | 2023-05-02 08:06 | WPDHPUPDATE1 ---
History and Physical Update Update Date/Time: 05/02/23 08:06 History and Physical has been reviewed, including an updated exam of the patient. There are NO changes in the patient's condition. Risks, benefits, and alternatives have been discussed and questions answered. Patient agrees to proceed with procedure. Proceed with ESWL of left renal calculus
[2023-05-02] MEDS: LACTATED RINGERS 1,000 ML 30 ML IV CONT (08:45)
[2023-05-02 08:47] LABS: Partial Thromboplastin Time 26.5 SECONDS (22.3-36.8); Prothrombin Time 13.5 Seconds (11.1-14.7)
--- NOTE | 2023-05-02 09:14 | WPDANESEPPF ---
Anes - Initial Pre Proc Eval Procedure: Operation Date: 05/02/23 09:30 Proposed Procedures p Left Renal Extracorporeal Shock Wave Lithotripsy - Prabhjot Mitchell MD Date/Time: 05/02/23 09:14 Surgeon: Prabhjot Mitchell MD Pre Op Diagnosis: left renal stone Patient Data Age: 52 Gender: F Height: 1.6 m Weight: 71 kg Last Vital Signs Temp 36.6 C 05/02/23 08:42 Pulse 82 05/02/23 08:42 Resp 14 05/02/23 08:42 BP 111/69 05/02/23 08:42 Pulse Ox 100 05/02/23 08:42 O2 Del Method Room Air 05/02/23 08:42 Allergies Allergy/AdvReac Type Severity Reaction Status Date / Time No Known Allergies Allergy Verified 05/02/23 08:46 Home Medications Medication Instructions Recorded Confirmed Type escitalopram oxalate 5 mg tablet 10 mg PO QAM 06/07/20 04/29/23 History (Lexapro) cholecalciferol (vitamin D3) 50 50 mcg PO DAILY 10/01/21 04/29/23 History mcg (2,000 unit) capsule (Vitamin D3) fluticasone propionate 50 1 spray intranasal Q12H 5 days #16 07/10/22 04/29/23 Rx mcg/actuation nasal grams spray,suspension (Flonase Allergy Relief) rivaroxaban 20 mg tablet (Xarelto) 20 mg PO QPM 07/10/22 04/29/23 History tamoxifen 10 mg tablet 10 mg PO QAM 07/25/22 04/29/23 History valacyclovir 500 mg tablet 500 mg PO DAILY #90 tabs 07/25/22 04/29/23 Rx diphenhydramine HCl 25 mg capsule 25 mg PO HS 04/29/23 04/29/23 History (Benadryl) fexofenadine 180 mg tablet 180 mg PO DAILY 04/29/23 04/29/23 History (Missy Allergy) Laboratory Tests 05/02/23 08:30 PT 13.5 Seconds (11.1-14.7) INR 1.0 APTT 26.5 SECONDS (22.3-36.8) Patient hx anesthesia problems: none Family hx anesthesia problems: none Results Review: All pre-operative results and documents have been reviewed as part of the pre-operative evaluation. [facility] Past Medical History Medical History Abnormal uterine bleeding Removal of uterine cells 2018 Atypical lobular hyperplasia (ALH) of both breasts Breast cancer Diagnosed age 50 (11/2020) Colon cancer screening Depression DVT (deep venous thrombosis) Encounter for breast reconstruction following mastectomy 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 H/O mastectomy History of bilateral tubal ligation 2002 Family History Family History Grandparent Diabetes mellitus Thrombocyte disorder Mother Patient's mother is in good health Thrombocyte disorder Father Dementia Family history of cancer Social History Social History Smoking status: Never smoker Second hand tobacco smoke exposure: No Alcohol intake: current Drinks per week: 2 Alcohol use details: 5/MONTH Substance use: never Substance use type: does not use Lack of Transportation: No Lack of Food: Never True Current Housing: I Have Housing Concerned About Future Housing: No Difficulty Paying Gas/Electric Bills: No Difficulty Paying for Meds: No Currently Unemployed: No Education: High School Diploma/GED Living arrangements: with family Additional living arrangements comments: DAUGHTER Occupation/Education: occupation Gender identity (if verbalized by the patient): Female Sexual Orientation (if Verbalized by the Patient): Straight or Heterosexual Spiritual care concerns: No Anes - Eval Final PreProcedure Day of Procedure 05/02/23 09:14 Patient weight: overweight Heart: regular rate and rhythm Lungs: clear to auscultation Airway: Mallampati scale class II Neurological: alert
[2023-05-02] MEDS: ceFAZolin 2 GM/D5W 50 ML 2 GM/50 ML BAG IVPB (09:49)
--- NOTE | 2023-05-02 10:32 | W.PM.PROC2 ---
Procedure Note - Detailed Date of Procedure 05/02/23 Pre-op Diagnosis left renal stone Post-op Diagnosis Same Procedure Performed Lithotripsy of left renal calculus Surgeon Prabhjot Mitchell MD Anesthesia General Description of Procedure Patient is taken to the operative suite and correctly identified. Once anesthesia was obtained the stone was localized in both planes. She has 2 stones adjacent to each other. Two thousand five hundred shocks were given to this area. Patient tolerated procedure well without any complications and was taken recovery stable condition. She will follow-up in 7-10 days with KUB. This completes sedation. Please send a copy of this op note to my office Drains No Packing No Pathology None sent Complications No immediate complications Condition Stable Disposition PACU
== END 2023-05-02 12:15 | disposition home or self-care (01) ==
PROVIDERS: PCP Internal Medicine; Visit Provider Urology
PROC: (CPT 50590; principal; 2023-05-02 09:30)
DX: N20.0 Calculus of kidney (principal); D68.51 Activated protein C resistance; F32.A Depression, unspecified; E55.9 Vitamin D deficiency, unspecified; Z85.3 Personal history of malignant neoplasm of breast; Z86.718 Personal history of other venous thrombosis and embolism; Z79.810 Long term (current) use of selective estrogen receptor modulators (SERMs)
CPT/HCPCS: 50590; 36415; 74018; 85610; 85730; J0690; J1100; J2250; J2405; J2704; J3010; J7120

== ENCOUNTER 2023-05-14 08:12 | Outpatient (CLI) | payer OTHER, SELFPAY ==
--- NOTE | ~2023-05-14 | XR_ITS ---
EXAMINATION: XR abdomen/kub 1V INDICATION: Calcium kidney stone TECHNIQUE: Supine views of the abdomen were obtained on 2 radiographs. COMPARISON: 05/02/2023 FINDINGS: There has been interval fragmentation of the previously described left kidney lower pole st one. Small stone fragments are seen in the lower pole of the kidney which measure up to 6 mm. There i s a 3 mm stone of the right kidney lower pole. There are calcifications measuring 2 mm and 1 mm in th e left pelvis possibly in the distal left ureter. The bowel gas pattern is normal. IMPRESSION: 1. Bilateral nephrolithiasis with interval fragmentation of the previously described left kidney lowe r pole stone. 2. Possible small stone fragments in the distal left ureter. Reviewed, dictated and finalized at location B. IMPRESSION: 1. Bilateral nephrolithiasis with interval fragmentation of the previously desc ribed left kidney lower pole stone. 2. Possible small stone fragments in the distal left ureter.
== END 2023-05-14 08:13 | disposition home or self-care (01) ==
PROVIDERS: PCP Internal Medicine; Visit Provider Urology
DX: N20.0 Calculus of kidney (principal)
CPT/HCPCS: 74018

== ENCOUNTER 2023-09-30 14:46 | Emergency (ER) | payer OTHER, SELFPAY ==
--- NOTE | 2023-09-30 14:57 | ED.URI ---
HPI - URI/Sore Throat General Chief Complaint: Upper Respiratory Infection Stated Complaint: Cough Time Seen by Provider: 09/30/23 15:24 Source: patient and RN notes reviewed Mode of arrival: ambulatory Limitations: no limitations History of Present Illness HPI Narrative: 53-year-old female presents with concern for cough, general malaise, feeling ?like I got hit by a truck? since yesterday. She reports she had symptoms 1 week ago the lasted for 2-3 days and then she felt completely back to normal. She reports she began feeling sick again yesterday. MD elicited complaint: cough Related Data Home Medications Medication Instructions Recorded Confirmed cholecalciferol (vitamin D3) 50 50 mcg PO DAILY 10/01/21 04/29/23 mcg (2,000 unit) capsule (Vitamin D3) rivaroxaban 20 mg tablet (Xarelto) 20 mg PO QPM 07/10/22 09/30/23 tamoxifen 10 mg tablet 10 mg PO QAM 07/25/22 09/30/23 fexofenadine 180 mg tablet 180 mg PO DAILY 04/29/23 09/30/23 (Missy Allergy) escitalopram oxalate 10 mg tablet 10 mg PO DAILY 09/30/23 09/30/23 methylphenidate HCl 54 mg 54 mg PO DAILY 09/30/23 09/30/23 tablet,extended release 24 hr Allergies Allergy/AdvReac Type Severity Reaction Status Date / Time No Known Allergies Allergy Verified 09/30/23 15:08 Review of Systems Review of Systems: CONSTITUTIONAL: Reports malaise, feeling unsteady EYES: Denies visual changes, redness, or discharge. ENT: Reports rhinorrhea, congestion. Denies sinus pain, otalgia and sore throat. CARDIOVASCULAR: Denies chest pain, palpitations, or edema. RESPIRATORY: Reports cough. Denies dyspnea. GASTROINTESTINAL: Denies abdominal pain, nausea, vomiting, diarrhea SKIN: Denies rash or itching. MUSCULOSKELETAL: Denies myalgia. NEUROLOGIC: Denies headache. All systems reviewed & are unremarkable except as noted in HPI and below PMFSH Past Medical History Medical History Abnormal uterine bleeding Removal of uterine cells 2018 Breast cancer (~11/2020) Diagnosed age 50 Left breast cancer. LCIS ALH. Stage 1. ER/NM positive, HER2 negative. Right breast shows atypical lobular hyperplasia, fibroadenomas, intraductal papillomas. Depression DVT (deep venous thrombosis) Factor V Leiden carrier Hyperlipidemia Leukopenia Miscarriage x3 Vitamin D deficiency Surgical History Surgical History H/O bilateral mastectomy (~02/07/21) had bilat total mastectomy, Left SNB, followed by TE reconstruction path c/w Right breast: atypical lobular hyperplasia, multifocal radial scar, fibroadenomas, intraductal papillomas. Left breast: invasive lobular carcinoma. grade 1. clear margins. no LVSI, 0/4 SNB. LCIS ALH (right breast removed prophylactically) H/O dilation and curettage (~1997) H/O dilation and curettage (~1998) History of bilateral tubal ligation (~2002) Hx of skin graft (~08/10/21) Fat graft/tissue expansion. Dr Kaur S/P breast biopsy, left (~12/08/20) Left breast MRI guided core biopsy: path c/w Invasive lobular carcinoma, 8 mm, low grade, no LVSI, ER/NM positive, HER2 negative. LCIS ALH S/P breast biopsy, left (~02/09/20) Left breast MRI guided core biopsy: path c/w atypical lobular hyperplasia, followed by the let breast excisional biopsy with intraductal papilloma, fibroadenoma, and ALH S/P breast biopsy, left (~10/19/19) Left breast MRI guided core biopsy. path c/w fibroadenoma, ALH S/P breast biopsy, right (~07/21/18) Right breast ultrasound guided biopsy. path c/w hyperplasia, negative for malignancy S/P breast biopsy, right (~11/12/11) right breast ultrasound guided biopsy: path c/w fibroadenoma Family History Family History Grandparent Diabetes mellitus Thrombocyte disorder Mother Patient's mother is in good health Thrombocyte disorder Father Dementia Family history of cance
[2023-09-30 14:59] VITALS: BP 109/71; PULSE 118; RESP 18; TEMP 37.6; O2SAT 97
== END 2023-09-30 15:35 | disposition home or self-care (01) ==
PROVIDERS: Emergency Provider Nurse Practitioner; PCP Internal Medicine
DX: J10.1 Influenza due to other identified influenza virus with other respiratory manifestations (principal); E78.5 Hyperlipidemia, unspecified; Z86.718 Personal history of other venous thrombosis and embolism; Z79.899 Other long term (current) drug therapy; Z79.01 Long term (current) use of anticoagulants; Z85.3 Personal history of malignant neoplasm of breast; Z20.822 Contact with and (suspected) exposure to COVID-19
CPT/HCPCS: 87426; 87804; 99213; C9803; G0463

== ENCOUNTER 2024-07-12 15:34 | Outpatient (CLI) | payer OTHER, SELFPAY ==
--- NOTE | ~2024-07-12 | XR_ITS ---
EXAMINATION: XR abdomen/kub 1V DATE: 07/12/2024 15:47 INDICATION: Calcium kidney stone. TECHNIQUE: A supine view of the abdomen on 2 radiographs was obtained. COMPARISON: Abdomen radiograph 03/14/2023, CT abdomen and pelvis 03/07/2023 FINDINGS: There are no dilated loops of bowel. There are 4 stones in the right kidney measuring up to 6 mm. There is a cluster of stones in left kidney the lower pole measuring up to approximately 7 mm. IMPRESSION: 1. Bilateral kidney stones. Reviewed, dictated and finalized at location A. IMPRESSION: 1. Bilateral kidney stones.
== END 2024-07-12 15:35 | disposition home or self-care (01) ==
LOC: ANHIMG 15:36
PROVIDERS: PCP Internal Medicine; Visit Provider Urology
DX: N20.0 Calculus of kidney (principal)
CPT/HCPCS: 74018

== ENCOUNTER 2024-08-12 11:24 | Outpatient (CLI) | payer OTHER, SELFPAY ==
--- NOTE | ~2024-08-12 | CT_ITS ---
CT of the Abdomen and Pelvis: Indication: Hepatomegaly Technique: 2.5 mm axial scans were obtained through the abdomen and pelvis following intravenous adm inistration of 100 cc of Omnipaque 350. Dose reduction technique was used on this scan by utilizing a utomated exposure control and iterative reconstruction technique. The dose-length product (DLP) was 5 41.04 mGy-cm. COMPARISON: 03/07/2023 Findings: Scans through the lung bases are unremarkable. Probable mild diffuse hepatic steatosis. Stable probable small hepatic cyst. Liver measures 17.9 cm i n craniocaudal length. The spleen, pancreas, gallbladder, and adrenal glands are within normal limits . Bilateral nonobstructing renal stones are present, measuring up to 8 mm in size in the right, and 5 mm in size on the left. No ureteral stone or hydronephrosis seen on either side. No evidence of aort ic aneurysm. No lymphadenopathy. No bowel obstruction or bowel wall thickening. There is no evidence to suggest acute appendicitis. Th ere is a small fat-containing umbilical hernia noted. Images through the pelvis were performed. Urinary bladder unremarkable. No adnexal mass seen. No asci fernanda. Impression: Diffuse hepatic steatosis with mild hepatomegaly, as detailed above. Bilateral nonobstructing nephrolithiasis, as detailed above. Reviewed, dictated and finalized at location . [facility] [employer] Impression: Diffuse hepatic steatosis with mild hepatomegaly, as detailed above. Bilateral nonobstructing nephrolithiasis, as detailed above.
== END 2024-08-12 11:25 | disposition home or self-care (01) ==
PROVIDERS: PCP Internal Medicine; Visit Provider Clinical Nurse Specialist
DX: K76.0 Fatty (change of) liver, not elsewhere classified (principal); R16.0 Hepatomegaly, not elsewhere classified; N20.0 Calculus of kidney
CPT/HCPCS: 74177; Q9967

== ENCOUNTER 2025-01-26 11:51 | Outpatient (CLI) | payer OTHER, SELFPAY ==
--- OUTSIDE RECORDS SUMMARY | 2025-01-26 13:14 | XMS_ITS | Encounter Summary ---
Author Organization [facility] Health Address [address] [place] [address] Care Team Providers Care Hand Profiler Name Role Phone Demarcus Rordiguez DO Primary Care Provider [phone] Encounter Details Date Type Department Care Team (Late st Contact Info) Description 07/20/2020 Lab Requisition [facility] [address] [facility] [place] [id number] Noemi Gandara MD [address] [facility] [address] [place] [address] Social History Tobacco Use Types Packs/Day Years Used Date Smoking Tobacco: Never Smokeless Tobacco: Never Alcohol Use Standard Drinks/Week Comments Yes 1 (1 standard drink = 0.6 oz pure alcohol) social drinker; if she goes out on weekends 3-4 beers or vodka 2x a month Comments No Sex and Gender Information Value Date Recorded Sex Assigned at Not on file Legal Sex Female 5:59 PM CDT Gender Identity Not on file Sexual Orientation Not on file Occupation Industry Job Start Date Job End Date Student Not on file Not on file Not on file documented as of this encounter Plan of Treatment Not on file documented as of this encounter Procedures Procedure Name Priority Date/Time Associated Diagnosis Comments DERMATOPATHOLOGY Routine 07/19/2020 12:0 0 AM CDT documented in this encounter Results * DERMATOPATHOLOGY (07/19/2020 12:00 AM CDT) Case Report Dermatopathology Report Case: [id number] Authorizing Provider: Noemi Gandara MD Collected: 07/19/2020 12:00 AM Ordering Location: [facility] Received: 07/20/2020 06:19 AM Pathologist: Ania Sampson MD Specimen: Skin, posterior neck 0 4:22 PM CDT DERMATOPATHOLOGY LABORATORY Final Diagnosis Specimen A. SKIN, posterior neck: SUPERFICIAL AND MID PERIVASCULAR LYMPHOCYTIC INFILTRATE (R21) (see microscopic description and comment) 0 4:22 PM CDT DERMATOPATHOLOGY LABORATORY Clinical History R/O GA vs CTD vs ACD vs sarcoid. [place] plaques somewhat annular at right hand and neck. 0 4:22 PM CDT DERMATOPATHOLOGY LABORATORY Gross Description Specimen A: Received is one formalin filled container labeled with the patient's name and designated posterior neck. The specimen consists of a punch measuring [id number], bisected. Jar 0. 0 4:22 PM CDT DERMATOPATHOLOGY LABORATORY Microscopic Description Specimen A. SKIN, posterior neck: The epidermis is unremarkable. In the dermis there is a superficial and mid perivascular lymphocytic infiltrate without eosinophils. The adnexal structures are spared. Granulomata are not seen. Periodic acid-Rosemary (PAS) stain fails to highlight fungal elements or significant basement membrane thickening in the available sections. COMMENT: The histological differential diagnosis is extensive and includes gyrate erythemas, an infectious related exanthem, a drug eruption, connective tissue disorder, and less likely lymphoma/leukemia cutis. A contact dermatitis is unlikely given the lack of eosinophils. Clinical correlation is recommended. 0 4:22 PM CDT DERMATOPATHOLOGY LABORATORY Disclaimer An external and internal positive and negative controls are appropriate for the histochemical, immunohistochemical and immunofluorescence stain(s) in this case (if any), except where stated explicitly. The performance characteristics of the stain(s) cited in this report were developed and its performance characteristic determined by the Dermatopathology Laboratory at [facility], directed by Dr. Nima Giron. These tests need not be, and therefore are not, approved by the [place] Food and Drug Administration. The tests are used for clinical purposes. Billing Codes Specimen Charges Stain Charges 27958 1 41488 1 0 4:22 PM CDT DERMATOPATHOLOGY LABORATORY Embedded Images 0 4:22 PM CDT DERMATOPATHOLOGY LABORATORY Pathology/Cytolog y TISSUE SPECIMEN FROM SKIN / Unknown 07/19/2020 07/20/2020 6:19 AM CDT Noemi Gandara MD LAB - PATHOLOGY/CYTOLOGY ORD ERABLES Final Result DERMATOPATHOLOGY LABORATORY [facility] - Department of Dermatology [facility] [address] [place] [address], [address] [phone] documented in this encounter Visit Diagnoses Not on filedocumented in this encounter Care Teams Hand Profiler Relationship Specialty Start Date End Date Demarcus Rodriguez DO PCP - General 01/09/18 documented as of this encounter
--- OUTSIDE RECORDS SUMMARY | 2025-01-26 13:14 | XMS_ITS | Continuity of Care Document ---
Author Organization [facility]. Address [address] [place] [address] Phone Care Team Providers Care Network Announcer Name Role Phone Dustin Maxwell MD Unavailable Unavailable Allergies, Adverse Reactions, Alerts Substance Reaction Status Criticality codeine Active No Information Medications Medication Instructions Dosage Effective Dates (start - stop) Status Comments Zylet 0.3 %-0.5 % Eye Drops gtt BID OD - Active Procedures Procedure Date Postop F/u Visit Incld Global 3 Postop F/u Visit Incld Global 3 Remov Fb/dacryolith Lacrimal P 13 Probe Nasolac Duct; W/insert T 13 Remov Fb/dacryolith Lacrimal P 13 Probe Nasolac Duct; W/insert T 13 Anes- Eye; Nos Dilat Lacrimal Punctum W/wo Ir 13 Dilat Lacrimal Punctum W/wo Ir 13 Offic/outpt E&m [facility] [place] [facility] 3 Advance Directives Directive Yes / No Effective Date File Name No Information Encounters Encounter Description Practice Location Reason(s) For Visit Diagnoses Date Provider Providers Copied on Encounter [facility] [address] [place] [address], [id number], [place] tel:[phone] [place] No Information 4 Alissa Chan. [address], [address], [place], [id number], [place]. tel:[phone] [facility] [address], [place], [place], [id number], [place] tel:[phone] [facility] Chronic Canaliculitis Nov- 3 Alissa Dustin. [address], [address], [place], [place], [id number], [place]. tel:[phone] [facility] [address], [place], [place], [id number], [place] tel:[phone] [place] Chronic Canaliculitis Oct-3 3 Alissa Chan. [address], [address], [place], [place], [id number], [place]. tel:[phone] [facility], [address], [place], [place], [id number], [place] tel:[phone] [facility] No Information Oct-2 3 [facility]. [address], [id number], [place]. tel:[phone] Referring Provider: Dustin Maxwell, [address] [place] [address], [address] . tel:[phone] [facility] [address], [place], [id number], [place] tel:[phone] [facility] No Information Oct-2 3 Alissa Chan. [address], [address], [place], [place], [id number], [place]. tel:[phone] [facility] [address], [place], [id number], [place] tel:[phone] [facility] No Information Oct-2 3 Alisas Chan. [address], [address], [place], [place], [id number], [place]. tel:[phone] Offic/outpt E&m [facility] 45 [facility] [address], [place], [address], [place] tel:[phone] [facility] Chronic Canaliculitis 3 Alissa Chan. [address], [address], [place], [id number], [place]. tel:[phone] Referring Provider: Dustin Maxwell, [address], [place], [address] . tel:[phone] Family History Family Member Type Diagnosis Age At Onset Mother Problem (finding) Heart Disease Father Problem (finding) glaucoma Father Problem (finding) diabetes melli tus in first degree relative Father Problem (finding) cataract Payers Payer name Insurance type Covered libertarian ID Authoriza tion(s) No Information Social History Type Description Quantity Date Captured Comments Sex Female Smoking Status No Information Chief Complaint And Reason For Visit No Information Reason For Referral Reason For Referral No Information History Of Present Illness Encounter Date Complaint History Of Prese nt Illness No Information Functional Status Date Functional Assessmen t No Information Instructions Date Instruction Additional Infor mation - PRN Related to Chron ic Canaliculitis Chronic Canaliculiti s - TJJ removed the stent w/o compliation in the minor. Dr. Maxwell spoke in length with pt over the reasoning for doing the Canaliculostomy with intubation RLL 07-23-13. Related to Chronic Canaliculitis - 2 weeks for follow up with TJJ Related to Chronic Canaliculitis Chronic Canaliculiti s, RLL- s/p Canaliculostomy with intubation RLL 07-23-13 - Discussed improvement of symptoms with patient, stent in place. Patient is concerned that there is an incision on her lower lid that is visable- Dr. Maxwell assured her that this is the stent opening she is seeing. Dr. Maxwell recommends leaving the stent in for another two weeks for optimal results. Related to Chronic Canaliculitis - schedule sx with TJJ Related t o Chronic Canaliculitis Chronic Canaliculiti s, RLL- D&I performed today BLL/ BUL- all ducts open- consent signed - Discussed diagnosis with patient in detail. D&I performed both upper and lower lid canula- all ducts open. Dr. Maxwell recommends Canaliculostomy with FB removal right lower lid. Risks and benefits were discussed with patient. Patient wishes to proceed with surgery. Related to Chronic Canaliculitis Assessments Type Assessment Date No Information Patient Care Teams Name Effective Dates (start - stop) Status Members No Information
--- OUTSIDE RECORDS SUMMARY | 2025-01-26 13:14 | XMS_ITS | Clinical Summary ---
Author Organization [facility] Address [address] [place] [address] Care Team Providers Care Emt Intermediate Name Role Phone Demarcus Rodriguez DO Primary Care Provider [phone] Source Comments [facility],non-owned Affiliates and Associated Physician Practices is amultiple site organization consisting of ambulatory clinics and hospital sitesin [place], [place], [place] and [place]. This disclosure is being madepursuant to the Care Everywhere program and may not contain all information available regarding this patient. Last updated 18.[facility] Allergies No known active allergies Medications * Be aware that medications may not be up to date on this document. Alwaysverify current medications with the patient. acyclovir (ZOVIRAX) 400 MG tabletIndication s:Hypersomnia TK 1 T PO BID 11 01/04/2018 Active fluticasone propionate (FLONASE) 50 MCG/ACT nasal sprayIndications :Hypersomnia INSTILL 2 SPRAYS IEN BID 3 12/28/2017 Active sertraline (ZOLOFT) 100 MG tabletIndication s:Hypersomnia TK 1 T PO QD 2 12/15/2017 Ac tive doxycycline hyclate (VIBRAMYCIN) 100 MG tabletIndication s:Acne Vulgaris Take 1 tablet by mouth 2 times daily Reasons: Common Acne 60 tablet 3 08/14/2018 Active aspirin EC (ECOTRIN) 81 MG tablet Take 81 mg by mouth once daily Active valACYclovir (VALTREX) 500 MG tablet 06/21/2019 Active valACYclovir (VALTREX) 500 MG tablet TK 1 T PO QD 12/10/2019 Active doxycycline hyclate (VIBRAMYCIN) 100 MG tablet Take 100 mg by mouth Active doxycycline monohydrate 100 MG capsuleIndicatio ns:Other rosacea Take 1 capsule by mouth every 12 hours 60 capsule 2 01/17/2020 Active metroNIDAZOLE, topical, (METROCREAM) 0.75 % creamIndications :Other rosacea Apply to face twice daily. 30 days supply. 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 10/21/2019 Fibroadenoma of left breast 10/21/2019 Left breast lump 07/15/2019 Fibrocystic breast changes of both breasts 07/28 Apocrine metaplasia of breast, right 07/28/2018 Immunizations Immunization Administration Dates Next Due INFLUENZA VACCINE 06/29/2017 Family History Medical History Relation Name Comments Asthma Maternal Grandmother CVA Neg Hx Cancer - Breast Neg Hx Cancer - Other Neg Hx Cancer - Skin, Melanoma Neg Hx Cancer - Skin, Non Melanoma Neg Hx Eczema Neg Hx Hemophilia Neg Hx Psoriasis Neg Hx Relation Name Status Comments Father unknown Maternal Grandmother Mother Alive Social History Tobacco Use Types Packs/Day Years [...] file Not on file Not on file Last Filed Vital Signs Vital Sign Reading Time Taken Comments Blood Pressure 128/85 01/09/2018 10:01 AM CDT Pulse 107 01/09/2018 10:01 AM CDT Temperature - - Respiratory Rate - - Oxygen Saturation - - Inhaled Oxygen Concentration - - Weight 76.2 kg (168 lb) 01/09/2018 10:01 AM CDT Height 160 cm (5' 3 ) 01/09/2018 10:01 AM CDT Body Mass Index 29.76 01/09/2018 10:01 AM CDT Plan of Treatment Health Maintenance Due Date Last Done Comments COLOGUARD (AGES 45-75) - COL ON CA SCREENING 1968 COLON MONITORING 1968 COLONOSCOPY - COLON CA SCREENING 1968 CT COLONOGRAPHY - COLON CA SCREENING 1968 Colorectal Cancer Screening 1968 FIT - COLON CA SCREENING 1968 FLEX SIG - COLON CA SCREENING 1968 LIPID TESTING 1968 PAP SMEAR 1968 HIV SCREENING 1983 HEPATITIS C SCREENING 06/20/1986 DTAP/TDAP/TD VACCINES (1 - Tdap) 1987 HEPATITIS B VACCINE (1 of 3 - 19+ 3-dose series) 1987 SCREENING FOR DIABETES 01/09/2018 PNEUMOCOCCAL VACCINE 50+ (1 of 1 - PCV) 2018 ZOSTER VACCINE (1 of 2) 2018 MAMMOGRAM 10/19/2021 10/19/2019 COVID-19 VACCINE (1 - 2023-2 5 season) 2024 DEPRESSION SCREENING 09/29/2024 INFLUENZA VACCINE (Season Ended) 2025 06/29/20 17 HIB VACCINE Aged Out No longer eligi ble based on patient's age to complete this topic HPV VACCINE Aged Out No longer eligi ble based on patient's age to complete this topic MENINGOCOCCAL (Group B) VACC INE SHARED DECISION-MAKING Aged Out No longer eligibl e based on patient's age to complete this topic MENINGOCOCCAL GROUPS A/C/Y/W VACCINE Aged Out No longer eligible b ased on patient's age to complete this topic Insurance [employer] Care Teams Emt Intermediate Relationship Specialty Start Date End Date Demarcus Rodriguez DO PCP - General 01/09/18
[2025-01-26 13:26] LABS: Hemoglobin A1C 5.1 % (<5.7)
== END 2025-01-26 11:52 | disposition home or self-care (01) ==
LOC: ANHLAB 11:52
PROVIDERS: PCP Internal Medicine; Visit Provider Nurse Practitioner Family
DX: Z13.1 Encounter for screening for diabetes mellitus (principal)
CPT/HCPCS: 36415; 83036